=== PATIENT | female | born 1995 | race Caucasian/White ===

== ENCOUNTER 2021-03-17 09:27 | Day surgery (SDC) | payer OTHER ==
[~2021-03-17] VITALS: Ht 175.3 cm; Wt 100.2 kg
[2021-03-17] MEDS ORDERED: PROCARDIA XL 3030 MG PO (09:56)
[2021-03-17] MEDS ORDERED: ZOCOR 20MG20 MG PO (09:57)
[2021-03-17] MEDS ORDERED: BIRTH CONTROL (09:58)
[2021-03-17 10:46] VITALS: BP 121/83; PULSE 78; TEMP 98.5
[2021-03-17 11:30] VITALS: BP 117/81; PULSE 82; TEMP 98
--- NOTE | 2021-03-17 11:30 | NUR ---
Patient arrived on cart from endo suite. Patient is very sleepy, but can respond to questions. Patient successfully ambulated from cart to recliner, gait was unsteady. RN assist +2. Vitals obtained. Patient requested an emisis bag to spit in, but denies N/V. is present to support his . Call zhou is at bedside. Will continue to monitior. Warm blanket provided.
--- NOTE | 2021-03-17 11:35 | NUR ---
stated patient needs to be monitored for 1 hr post procedure.
[2021-03-17 11:45] VITALS: BP 117/75; PULSE 77
--- NOTE | 2021-03-17 11:45 | NUR ---
Patient is more alert in the recliner, oriented x3. Patient is drinking ice water and is tolerating it well. Vitals obtained.
[2021-03-17 12:00] VITALS: BP 121/76; PULSE 68
--- NOTE | 2021-03-17 12:00 | NUR ---
Vitals obtained. Patient requested a warm muffin to eat. Will continue to monitor. said he did not want anything.
[2021-03-17 12:15] VITALS: BP 126/81; PULSE 65
--- NOTE | 2021-03-17 12:15 | NUR ---
Patient was assisted with ambulating to bathroom to void. No complications at this time. Vitals obatined. IV disconnected at this time.
--- NOTE | 2021-03-17 12:22 | NUR ---
IV discontinued at this time due to impending discharg. Catheter tip intact. No redness or swelling noted. Pressure bandage applied. Patient is currently changing into personal clothes.
--- NOTE | 2021-03-17 12:40 | NUR ---
Discharge instrustions reviewed with the patient and her at this time. Both verbalized understanding and stated no further questions or concerns. Patient stated their ride is 40 minutes out, at [place].
--- NOTE | 2021-03-17 13:29 | NUR ---
PATIENT WAS ESCORTED OUT TO THE FRONT ENTRENCE VIA WHEELCHAIR. PATIENT HAS HER PERSONAL BELONGINGS, EDUCATIONAL MATERIAL AND DISCHARGE INSTRUCTIONS. PATIENT, HER AND SMALL CHILD WERE TRANSFERRED INTO THE CARE OF THEIR FRIEND, WHO IS PRESENT TO DRIVE.
== END 2021-03-17 13:30 | disposition home or self-care (01) ==
LOC: SDCO 09:27
DX: K83.8 Other specified diseases of biliary tract (principal); K31.9 Disease of stomach and duodenum, unspecified; I10 Essential (primary) hypertension
CPT/HCPCS: C1769; J2704; J7120; Q9967